=== PATIENT | female | born 1990 | race Caucasian/White ===

== ENCOUNTER 2021-10-01 07:52 | Outpatient (RCR) | payer MEDICARE, SELFPAY ==
[2021-10-01 08:06] VITALS: BP 117/77; PULSE 69; RESP 16; TEMP 36.3; O2SAT 93
[2021-10-01] MEDS: VALPROATE SODIUM 1,000 MG in 0.9 % SODIUM CHLORIDE 100 ml 100 ML 660 MG IVPB (08:32)
[2021-10-01] MEDS: METHYLPREDNISOLONE SOD SUCC 1,000 MG in 0.9 % SODIUM CHLORIDE 100 ml 100 ML 116 MG IVPB (08:49)
[2021-10-01] MEDS: KETOROLAC 30 MG/ML inj IVP (10:02)
[2021-10-01] MEDS: ONDANSETRON 2 MG/ML inj 4 MG IVP ×2 (10:07→10:27)
[2021-10-01] MEDS: 0.9 % SODIUM CHLORIDE 250 ml IV (10:36)
== END 2021-10-31 23:59 | disposition home or self-care (01) ==
LOC: CCIC 07:52
PROVIDERS: Visit Provider Clinical Nurse Specialist
DX: G43.909 Migraine, unspecified, not intractable, without status migrainosus (principal)
CPT/HCPCS: 96365; 96376; J1885; J2405; J2930; J7050

== ENCOUNTER 2021-12-28 08:00 | Outpatient (RCR) | payer MEDICARE, SELFPAY ==
--- NOTE | 2021-11-30 12:45 | URNOTE ---
Request received from [facility] for authorization of Depacon [id number]. Patient carries Medicare as primary insurance. Per CMS.gov no prior authorization is required for Depacon. Services are based on medical necessity and follows Medicare guidelines.
--- NOTE | 2021-11-30 13:40 | ONC.NURNOTE ---
Patient was ordered a Migraine Cocktail by [facility]. Information regarding patient was sent. Patient has been placed on tizanidine and topiramate. These both increase the drowsiness that patient may experience and [employer] is not comfortable administering this without patient having a regional driver. Patient is unable to have a regional driver, but notes that has not been taking the tizanidine and will hold the topiramate tonight. Talked with [employer], and she is comfortable with administration knowing this but patient should contact [facility] to be sure that this will not cause any issues for patient by doing this. Also questioned patient about risk, she notes that her had a vasectomy and there is no risk for .
[2021-12-01 08:03] VITALS: BP 117/76; PULSE 96; RESP 16; TEMP 36.7; O2SAT 96
[2021-12-01] MEDS: VALPROATE SODIUM 1,000 MG in 0.9 % SODIUM CHLORIDE 100 ml 100 ML 660 MG IVPB (08:34)
[2021-12-01] MEDS: METHYLPREDNISOLONE SOD SUCC 1,000 MG in 0.9 % SODIUM CHLORIDE 100 ml 100 ML 116 MG IVPB (08:49)
[2021-12-01] MEDS: KETOROLAC 30 MG/ML inj IVP (10:06)
[2021-12-01] MEDS: ONDANSETRON 2 MG/ML inj 4 MG IVP ×2 (10:09→10:14)
--- NOTE | 2021-12-22 15:14 | ONC.NURNOTE ---
Received orders for Migraine protocol infusion. Orders co-signed by Janet Yeh APRN. [facility] Clinician called pt to schedule and pt declined at this time. Pt states she felt well at this time and will call in the next couple days if infusion needed.
[2021-12-28 08:13] VITALS: BP 128/83; PULSE 59; RESP 16; TEMP 36.9; O2SAT 98
[2021-12-28] MEDS: VALPROATE SODIUM 1,000 MG in 0.9 % SODIUM CHLORIDE 100 ml 100 ML 660 MG IVPB (08:38)
[2021-12-28] MEDS: METHYLPREDNISOLONE SOD SUCC 1,000 MG in 0.9 % SODIUM CHLORIDE 100 ml 100 ML 116 MG IVPB (08:55)
[2021-12-28] MEDS: KETOROLAC 30 MG/ML inj IVP (10:17)
[2021-12-28] MEDS: ONDANSETRON 2 MG/ML inj 4 MG IVP (10:17)
== END 2022-05-30 23:59 | disposition home or self-care (01) ==
LOC: CCIC 08:00
PROVIDERS: Visit Provider Clinical Nurse Specialist
DX: G43.909 Migraine, unspecified, not intractable, without status migrainosus (principal)
CPT/HCPCS: 96365; 96376; J1885; J2405; J2930